=== PATIENT | female | born 1975 | race Caucasian/White ===

== ENCOUNTER 2017-04-07 08:43 | Emergency (ER) | payer SELFPAY | END 2017-04-07 12:48 | disposition home or self-care (01) | LOC: ERS 08:43 | DX: J11.1 Influenza due to unidentified influenza virus with other respiratory manifestations (principal); F41.9 Anxiety disorder, unspecified; F17.210 Nicotine dependence, cigarettes, uncomplicated | CPT/HCPCS: 87081; 87430; 99283 ==

== ENCOUNTER 2017-11-18 10:16 | Outpatient (CLI) | payer BC | END 2017-11-18 10:17 | disposition home or self-care (01) | LOC: BICULT 10:16 | PROVIDERS: ATTEND Family Medicine | DX: N92.1 Excessive and frequent menstruation with irregular cycle (principal) | CPT/HCPCS: 76856 ==

== ENCOUNTER 2018-04-02 08:00 | Emergency (ER) | payer BC ==
[2018-04-02 08:22] LABS: Bilirubin Negative (Negative); Blood, Urine Trace (Negative); Clarity CLOUDY (Clear); Glucose, Urine (Dipstick) Negative (Negative); Leukocyte Large (Negative); Nitrite Negative (Negative); Protein, Urine (Dipstick) Negative (Neg-Trace); Specific Gravity, Urine 1.011 (1.002-1.036); Urobilinogen 0.2 mg/dL (0.2-1.0); pH, Urine 7.5 (5.0-9.0)
[2018-04-02 08:24] LABS: Bacteria/HPF 4+ HPF (None Seen); Hyaline Casts/LPF 0-3 HYALINE CAST LPF (0-3 Hyaline); Pathc Cast-AUWi Flag 0.43 (0-2.49); Pregnancy Test - Urine (BHCG) Negative (Negative); Pregu Control Background? CLEAR/WHITE (CLR/WHITE); Pregu Control Bar Appear? YES (CONTROL BAR); Specific Gravity 1.011 (1.002-1.036); Squamous Epithelial None Seen HPF (0-3)
[2018-04-06 21:01] LABS: Chlamydia by PCR Not Detected (NotDetected); GC by PCR Not Detected (NotDetected)
== END 2018-04-02 08:58 | disposition home or self-care (01) ==
LOC: ERS 08:00
DX: N39.0 Urinary tract infection, site not specified (principal); J30.9 Allergic rhinitis, unspecified; N76.0 Acute vaginitis; B37.3 Candidiasis of vulva and vagina; N89.8 Other specified noninflammatory disorders of vagina; Z71.6 Tobacco abuse counseling
CPT/HCPCS: 81003; 81015; 81025; 87077; 87081; 87086; 87186; 87430; 87480; 87491; 87510; 87591; 87660; 99406

== ENCOUNTER 2018-08-23 07:52 | Outpatient (CLI) | payer OTHER, MEDICAID ==
--- NOTE | 2018-08-23 08:34 | MMO ---
Bilateral MAMMO Bilat Screen [facility]. CLINICAL HISTORY: Patient is 43 years old and is seen for screening. The patient has no family history of breast cancer. The patient has no personal history of cancer. VIEWS: The views performed were: bilateral craniocaudal with tomosynthesis and bilateral mediolateral oblique with tomosynthesis. MAMMOGRAM FINDINGS: There are scattered fibroglandular densities. There are no suspicious masses, suspicious calcifications, or new areas of architectural distortion. IMPRESSION: THERE IS NO MAMMOGRAPHIC EVIDENCE OF MALIGNANCY. A ROUTINE FOLLOW-UP MAMMOGRAM IN 1 YEAR IS RECOMMENDED. THE RESULTS OF THIS EXAM WERE SENT TO THE PATIENT. ACR BI-RADS Category 1 - Negative MAMMOGRAPHY NOTE: 1. A negative mammogram report should not delay a biopsy if a dominant of clinically suspicious mass is present. 2. Approximately 10% to 15% of breast cancers are not detected by mammography. 3. Adenosis and dense breasts may obscure an underlying neoplasm.
--- NOTE | 2018-08-23 09:49 | ULT ---
RIGHT UPPER QUADRANT ULTRASOUND: HISTORY: Elevated LFTs. COMPARISON: 06/20/2016 FINDINGS: The liver, gallbladder, and visualized portions of the pancreas (still not seen due to overlying opal l gas) are normal. The common duct measures 3 mm in diameter. No right hydronephrosis is seen. No free fluid is noted in the Marcelino pouch. There is a questionable right renal mass arising from the right mid kidney, measuring 2.8 x 2.5 x 2.1 cm. IMPRESSION: 1. No evidence of cholelithiasis. 2. Probable right renal mass. Further evaluation with CT scan (with and without intravenous contras t) is recommended. CODE T POS: [facility]
== END 2018-08-23 07:53 | disposition home or self-care (01) ==
LOC: BICULT 07:52
PROVIDERS: ATTEND Family Medicine
DX: Z12.31 Encounter for screening mammogram for malignant neoplasm of breast (principal); R10.9 Unspecified abdominal pain
CPT/HCPCS: 76705; 77063; 77067

== ENCOUNTER 2018-09-01 12:56 | Outpatient (CLI) | payer OTHER ==
--- NOTE | 2018-09-01 14:24 | CT ---
CT ABDOMEN AND PELVIS WITH AND WITHOUT IV CONTRAST: 09/01/18 PROVIDED CLINICAL HISTORY: Possible renal mass on prior ultrasound. FINDINGS: Correlation is made with ultrasound dated 08/23/18. The visualized lung bases are free of significant opacity. There is no evidence for right renal mass as questioned on the prior ultrasound. There is a Subcentim eter hypodensity involving the left kidney which is too small to definitively characterize but demons trates features typical for a cyst. The solid abdominal organs demonstrate an otherwise unremarkable CT appearance. The delayed images demonstrate no evidence for filling defects involving the renal co llecting systems, opacified ureters or urinary bladder. There is no bowel dilatation, inflammatory fat stranding, free fluid or lymph node enlargement appare nt. Nonspecific somewhat prominent and heterogeneous appearance to the uterine cervix. The osseous structures demonstrate no concerning lytic or blastic lesions. IMPRESSION: 1. No evidence for renal mass as questioned on prior ultrasound. 2. Nonspecific prominent and somewhat heterogeneous appearance to the uterine cervix. Consider c orrelation with cervical exam. POS: [facility]
== END 2018-09-01 12:57 | disposition home or self-care (01) ==
LOC: BICCT 12:56
PROVIDERS: ATTEND Family Medicine
DX: N28.89 Other specified disorders of kidney and ureter (principal)
CPT/HCPCS: 74178

== ENCOUNTER 2019-02-02 01:40 | Emergency (ER) | payer OTHER ==
[2019-02-02] MEDS ORDERED: Mag-Al 1200 mg/1200 mg/30 ML UDCUP ONE (02:07)
[2019-02-02] MEDS ORDERED: Lidocaine Viscous Sol 2% 15 ml UD Cup ONE (02:07)
== END 2019-02-02 02:56 | disposition home or self-care (01) ==
LOC: ERS 01:40
DX: K21.0 Gastro-esophageal reflux disease with esophagitis (principal); F32.9 Major depressive disorder, single episode, unspecified; F17.210 Nicotine dependence, cigarettes, uncomplicated; Z79.899 Other long term (current) drug therapy
CPT/HCPCS: 99283

== ENCOUNTER 2019-02-07 02:43 | Emergency (ER) | payer OTHER ==
[2019-02-07 03:11] LABS: #Eosinphils 0.1 thou/uL (0.0-0.7); #Lymphocytes 2.4 thou/uL (1.20-3.40); #Monocytes 0.8 thou/uL (0.11-0.59); #Neutrophils 5.6 thou/uL (1.40-6.50); %Basophils 0.4 % (0.0-1.0); %Eosinophils 1.5 % (0.0-10.0); %Lymphocytes 26.9 % (21.0-51.0); %Monocytes 8.4 % (0.0-10.0); %Neutrophils 62.8 % (42.0-75.0); Hemoglobin 13.3 g/dL (12.0-16.0); Mean Corpuscular HGB CONC 33.7 g/dL (32.0-36.0); Mean Corpuscular Hemoglobin 29.4 pg (27.0-31.0); Mean Corpuscular Volume 87.1 fL (78.0-98.0); Mean Platelet Volume 8.1 fL (7.4-10.4); Platelet Count 275 thou/uL (130-400); RBC Distribution Width 11.9 % (11.5-14.5); Red Blood Cell (RBC) Count 4.53 mill/uL (4.20-5.40); White Blood Cell (WBC) Count 8.9 thou/uL (4.8-10.8)
[2019-02-07 03:32] LABS: ALT (SGPT) 17 U/L (8-55); AST (SGOT) 15 U/L (5-34); Albumin 3.6 g/dL (3.5-5.0); Alkaline Phosphatase 319 U/L (40-110); Anion Gap 12 mmol/L (10-20); BUN (Urea Nitrogen) 13 mg/dL (7.0-18.7); Bilirubin, Total 0.2 mg/dL (0.2-1.2); Calc. Creatinine Clearance 0 mL/min (70-130); Calcium 9.2 mg/dL (7.8-10.44); Carbon Dioxide 23 mmol/L (22-29); Chloride 105 mmol/L (98-107); Estimated GFR-MDRD 73; Globulin 3.7 g/dL (2.4-3.5); Glucose 102 mg/dL (70-105); Lipase 41 U/L (8-78); Potassium 3.9 mmol/L (3.5-5.1); Protein, Total 7.3 g/dL (6.0-8.3); Sodium 136 mmol/L (136-145)
[2019-02-07] MEDS ORDERED: Lidocaine Viscous Sol 2% 15 ml UD Cup ONE (03:47)
[2019-02-07] MEDS ORDERED: Mag-Al 1200 mg/1200 mg/30 ML UDCUP ONE (03:47)
[2019-02-07 05:12] LABS: Bacteria/HPF None Seen HPF (None Seen); Bilirubin Negative (Negative); Blood, Urine Negative (Negative); Clarity Clear (Clear); Glucose, Urine (Dipstick) Normal (Negative); Leukocyte 75 Leu/uL (Negative); Nitrite Negative (Negative); Pregnancy Test - Urine (BHCG) Negative (Negative); Pregu Control Background? CLEAR/WHITE (CLR/WHITE); Pregu Control Bar Appear? YES (CONTROL BAR); Protein, Urine (Dipstick) Negative (Neg-Trace); RBC/HPF 0-3 HPF (0-3); Specific Gravity 1.043 (1.002-1.036); Squamous Epithelial 0-3 HPF (0-3); Urobilinogen Normal mg/dL (Less than 2)
[2019-02-07 05:48] LABS: Troponin I Less than 0.010 ng/mL (< 0.028)
--- NOTE | 2019-02-07 08:32 | CT ---
PRELIMINARY REPORT/[facility]/EMERGENCY AFTER HOURS PROCEDURE: PROCEDURE INFORMATION: Exam: CT Angiography Chest With Contrast Exam date and time: 02/07/2019 3:56 AM Clinical history: 43 years old, female; Sharp intermittent right-sided chest pain and right-sided cade k pain, woke from sleep around 1:30 am. Pain worsens with breathing. PT reports HX of similar SX, wor ked up for by pcp Dr. Kwan Barton, had negative abdominal US and CT. HX - acid reflux, takes medications; No abdominal surgery. TECHNIQUE: Imaging protocol: Computed tomographic angiography of the chest with intravenous contrast. 3D rendering: MIP reconstructed images were created and reviewed. COMPARISON: No relevant prior studies available. FINDINGS: Pulmonary arteries: No evidence of pulmonary embolism. Aorta: Normal caliber thoracic aorta without dissection or aneurysm. Lungs: No alveolar infiltrate. Pleural space: No pleural fluid collection. No pneumothorax. Heart: No RV dysfunction. No pericardial effusion. Lymph nodes: Unremarkable. No enlarged lymph nodes. Bones/joints: Unremarkable. No acute fracture. Soft tissues: Unremarkable. IMPRESSION: 1. No evidence of pulmonary embolism. 2. No alveolar infiltrate. 3. Normal caliber thoracic aorta without dissection or aneurysm. Thank you for allowing us to participate in the care of your patient. Dictated and Authenticated by: Matthew Haines MD 02/07/2019 4:35 AM Central Time ([place] & [place]) FINAL REPORT EMERGENCY AFTER HOURS CTA CHEST WITH CONTRAST: FINDINGS/IMPRESSION: I agree with the findings and impression given in the preliminary report per [facility] physician. No evide nce of pulmonary thromboembolism.
== END 2019-02-07 06:12 | disposition home or self-care (01) ==
LOC: ERS 02:43
DX: R07.89 Other chest pain (principal); N39.0 Urinary tract infection, site not specified; K21.9 Gastro-esophageal reflux disease without esophagitis; F41.9 Anxiety disorder, unspecified; F32.9 Major depressive disorder, single episode, unspecified; Z87.891 Personal history of nicotine dependence; Z79.899 Other long term (current) drug therapy
CPT/HCPCS: 36415; 71275; 80053; 81003; 81015; 81025; 83690; 84484; 85025; 85379; 93005

== ENCOUNTER 2019-02-14 08:35 | Outpatient (CLI) | payer OTHER ==
--- NOTE | 2019-02-14 11:52 | NM ---
EXAM: NM Hida Scan W Drug PROVIDED CLINICAL HISTORY: Epigastric abdominal pain. Radiopharmaceutical: 5.3 mCi technetium 99m mebrofenin, IV. COMPARISON: None FINDINGS: There is normal uptake and excretion of radiotracer by the liver. Gallbladder activity is faintly vis ualized by 5 minutes with increasing activity in the gallbladder imaging up to 60 minutes. Bowel activity is visualized by 23 minutes. After 60 minutes of imaging, 8 ounces of ensure was administere d by mouth, and a gallbladder ejection fraction of 55% was obtained. A normal gallbladder ejection fraction is greater than 33%. IMPRESSION: 1. No evidence of a cystic or common duct obstruction. 2. Normal gallbladder ejection fraction.
== END 2019-02-14 08:36 | disposition home or self-care (01) ==
LOC: NM 08:35
PROVIDERS: ATTEND Family Medicine
DX: R10.13 Epigastric pain (principal)
CPT/HCPCS: 78227; A9537

== ENCOUNTER 2019-09-20 07:46 | Outpatient (CLI) | payer OTHER ==
--- NOTE | 2019-09-20 08:33 | ULT ---
Sonogram right upper quadrant HISTORY: Right upper quadrant pain. FINDINGS: Gallbladder has a normal appearance Without stone evident. Common duct is 0.3 cm. Liver unremarkable without focal mass or intrahepatic biliary dilatation. No free fluid. IMPRESSION : Normal exam.
== END 2019-09-20 07:47 | disposition home or self-care (01) ==
LOC: BICULT 07:46
PROVIDERS: ATTEND Internal Medicine Gastroenterology
DX: R10.11 Right upper quadrant pain (principal); K21.9 Gastro-esophageal reflux disease without esophagitis
CPT/HCPCS: 76705

== ENCOUNTER 2019-09-20 07:54 | Outpatient (CLI) | payer OTHER ==
--- NOTE | 2019-09-20 08:15 | RAD ---
Chest 2 views HISTORY: Elevated alkaline phosphatase level. COMPARISON: 06/25/2013. FINDINGS: Cardiac silhouette and pulmonary vasculature are unremarkable. Mediastinum is midline. No lobar consolidation, pneumothorax, or pleural fluid. Osseous structures are unremarkable. IMPRESSION : Normal exam.
== END 2019-09-20 07:55 | disposition home or self-care (01) ==
LOC: BICRAD 07:54
PROVIDERS: ATTEND Family Medicine
DX: R74.8 Abnormal levels of other serum enzymes (principal)
CPT/HCPCS: 71046; 76705

== ENCOUNTER 2019-09-29 06:31 | Outpatient (CLI) | payer OTHER ==
[2019-09-29 13:51] LABS: BHCG - Serum Negative (NEGATIVE); Pregs Control Background? CLEAR/WHITE (CLR/WHITE); Pregs Control Bar Appear? YES (CONTROL BAR)
== END 2019-09-29 06:32 | disposition home or self-care (01) ==
LOC: LABBT 06:31
PROVIDERS: ATTEND Family Medicine
DX: Z01.812 Encounter for preprocedural laboratory examination (principal); Z11.59 Encounter for screening for other viral diseases; N81.4 Uterovaginal prolapse, unspecified; N94.10 Unspecified dyspareunia
CPT/HCPCS: 84703

== ENCOUNTER 2019-10-03 05:39 | Day surgery (SDC) | payer OTHER ==
[2019-09-28 10:22] VITALS: BMI 35.4
[2019-09-29 14:05] LABS: Hemoglobin 13.2 g/dL (12.0-16.0); Mean Corpuscular HGB CONC 33.4 g/dL (32.0-36.0); Mean Corpuscular Hemoglobin 28.9 pg (27.0-31.0); Mean Corpuscular Volume 86.7 fL (78.0-98.0); Mean Platelet Volume 9.1 fL (7.4-10.4); Platelet Count 270 thou/uL (130-400); RBC Distribution Width 12.7 % (11.5-14.5); Red Blood Cell (RBC) Count 4.57 mill/uL (4.20-5.40); White Blood Cell (WBC) Count 7.5 thou/uL (4.8-10.8)
[2019-09-30 11:32] LABS: SARS-CoV-2 MS2 Positive; SARS-CoV-2 N Gene Negative; SARS-CoV-2 S Gene Negative; SARS-CoV-2 orf1ab Negative
--- NOTE | 2019-10-02 11:23 | HP ---
REASON FOR ADMISSION: Symptomatic uterine prolapse with stress incontinence and dyspareunia. SCHEDULED PROCEDURE: Total laparoscopic hysterectomy with bilateral salpingectomy, midurethral sling with Advantage Fit and cystoscopy, possible uterosacral ligament vaginal vault suspension. HISTORY OF PRESENT ILLNESS: Ms. Holman is a 44-year-old, 2, para 2, status post x2, negative Pap smear. She has a history of dyspareunia and dysmenorrhea, stress incontinence, and desires definitive surgical management. SOCCER PLAYER HISTORY: As noted. PAST MEDICAL HISTORY: Significant for anxiety and gastroesophageal reflux. PAST SURGICAL HISTORY: Tubal ligation and LEEP. SOCIAL HISTORY: The patient is an everyday smoker. Denies alcohol or IV drug abuse. MEDICATIONS: Include Nexium, TriNessa, and Wellbutrin. ALLERGIES: SULFA. FAMILY HISTORY: Noncontributory. PHYSICAL EXAMINATION: GENERAL: White female, 5 feet and 3, 200 pounds, BMI 35, blood pressure 112/74, pulse 91, and respirations 18. HEENT: Within normal limits. LUNGS: Clear to auscultation bilaterally. HEART: Regular rhythm. BREASTS: No masses bilaterally. ABDOMEN: Soft and nontender. No rebound or guarding. : Vulva without lesions. Vagina without discharge. Cervix, introitus -3 with a prominent nabothian cyst. Uterus is tender, smooth, and normal size, adnexa without masses. The patient has a hypermobile urethra with a leak with cough form Valsalva. EXTREMITIES: Without clubbing, cyanosis, or edema. LABORATORY DATA: The patient has a negative test on the 18, hematocrit of 39.6% with a white count of 7.5. Negative COVID test. Blood type A positive, antibody negative. IMPRESSION: Symptomatic uterine prolapse with dyspareunia, dysmenorrhea, and hypermobile urethra and stress incontinence. PLAN: Total laparoscopic hysterectomy, bilateral salpingectomy, possible vaginal vault suspension with uterosacral ligament, midurethral sling with [employer] Advantage Fit and cystoscopy. The patient understands risks and benefits of procedure. We will administer appropriate antibiotic and DVT prophylaxis. Job ID: [id number]
[2019-10-03] MEDS ORDERED: Famotidine/PF 20 mg/2ml Vial ONE (06:03)
[2019-10-03] MEDS ORDERED: CeleCOXIB 100 MG CAP ONE (06:03)
[2019-10-03] MEDS ORDERED: Gabapentin 300 MG CAP ONE (06:03)
[2019-10-03] MEDS ORDERED: Lidocaine 1% w/Epinephrine 1:100K 20 ML VIAL ONE (06:41)
[2019-10-03] MEDS ORDERED: Bupivacaine PF 0.5% 30 ML VIAL ONE (06:41)
[2019-10-03] MEDS ORDERED: Midazolam HCl 2 mg/2 ml Vial ONE (07:20)
[2019-10-03] MEDS ORDERED: Fentanyl 100 MCG/2 ML VIAL ONE ×3 (07:22→10:19)
[2019-10-03] MEDS ORDERED: Morphine 4 MG/ML VIAL SLOW IVP PRN (09:14)
[2019-10-03] MEDS ORDERED: HYDROcodone/Acetaminophen 10/325 mg Tablet PO PRN ×2 (09:14)
[2019-10-03] MEDS ORDERED: Promethazine HCl 25 MG/ML VIAL IM PRN ×2 (09:14→09:28)
[2019-10-03] MEDS ORDERED: Simethicone Chewable 80 MG TAB PO PRN (09:14)
[2019-10-03] MEDS ORDERED: Ondansetron PF 4 MG/2 ML Vial IVP PRN (09:14)
[2019-10-03] MEDS ORDERED: Bisacodyl 10 MG SUPP PR PRN (09:14)
[2019-10-03] MEDS ORDERED: diphenhydrAMINE 25 MG CAP PO PRN (09:14)
[2019-10-03] MEDS ORDERED: Ondansetron HCl/PF 4 MG/2 ML Vial IVP PRN (09:28)
[2019-10-03] MEDS ORDERED: Promethazine HCl 25 MG/ML VIAL SLOW IVP PRN (09:28)
--- NOTE | 2019-10-03 10:51 | OP ---
DATE OF PROCEDURE: 10/03/2019 PREOPERATIVE DIAGNOSES: Stress urinary incontinence, mild uterine prolapse with dyspareunia and dysmenorrhea. POSTOPERATIVE DIAGNOSES: Stress urinary incontinence, mild uterine prolapse with dyspareunia and dysmenorrhea. PROCEDURES PERFORMED: Total laparoscopic hysterectomy, bilateral salpingectomy, mid urethral sling with Advantage Fit and cystourethroscopy. CARD CLOTHIER: Arlene Mayers PA-C ANESTHESIA: Sergio Kang CRNA, general endotracheal. MEDICATIONS: 2 g Ancef pre-incision. DVT PROPHYLAXIS: SCDs. DRAINS: Bradley to gravity. ESTIMATED BLOOD LOSS: 75 mL. COMPLICATIONS: None. OPERATIVE FINDINGS: 1. Normal-appearing uterus, tubes, and ovaries bilaterally. 2. Hemostasis, clear urine at the end of the procedure. 3. Normal-appearing bladder, status post mid urethral sling placement. 4. Correct counts at the end of the procedure. DISPOSITION: Recovery room in good condition. DESCRIPTION OF PROCEDURE: After obtaining appropriate informed consent, the patient was taken to the operating room, where general endotracheal anesthesia was achieved without difficulty. She was prepped and draped in dorsal lithotomy in Roberto Carlos stirrups. Sided speculum placed in vagina, cervix identified, grasped with single-toothed tenaculum at 12 o'clock. Uterus sounded to 8 cm. BEE manipulator with a 4 cm vaginal radio interference trouble shooter and an 8 cm obturator was placed without difficulty. Speculum and tenaculum were removed. Bradley catheter placed, placed on a 60 mL syringe after draining 200 mL of clear urine. Legs were rotated down and capsule machine operator changed his gloves and turned attention to abdominal portion of the procedure. A 5 mL of Marcaine was injected at the base of umbilicus and a 12 mm skin incision made. Veress needle placed in the abdominal cavity. Insufflation was carried out with carbon dioxide for a maximum pressure of 15, volume approximately 3-1/2 L. A 12 mm non-cutting balloon Usha trocar was placed without difficulty. Right and left lateral da Davonte ports were placed under direct visualization as well as an 11 mm research assistant port in the right upper quadrant. The patient was placed in steep Trendelenburg and the da Davonte robot docked with monopolar scissors in the right hand and bipolar fenestrated forceps in the left. Uterus and adnexa were mobilized. The fallopian tubes were excised on the patient's left, coagulating across the medial salpinx and sent for pathologic analysis. Utero-ovarian ligaments around the broad ligament were coagulated and transected and this was taken down to the level of the internal cervical os on the left. The vesicouterine peritoneal fold was incised sharply, dissecting the bladder off the lower uterine segment, cervix and upper vagina. Skeletonization of the uterine vessels on the left was carried out. These were coagulated and transected. Attention was turned to the patient's right where identical procedure was carried out removing the fallopian tube, coagulating and transecting the broad round and the utero-ovarian, caring this down to the level of internal cervical os, skeletonized the uterine vessels, incising the vesicouterine peritoneum and dissecting the bladder off the lower uterine segment of vagina. Once the uterine vessels had been coagulated and transected on each side, and after having identified the ureter well lateral on each side, the vagina was entered at 12 o'clock. Using the monopolar scissors, this was extended from 12 to 3 and from 12 to 9, and from 3-6 and 9-6 amputating the specimen which was pulled in the vagina to maintain pneumoperitoneum. Suction irrigation was carried out. Good hemostasis was achieved around the vaginal cuff. The cuff was closed using a running continuous 2-0 PDS Stratafix suture running from the patient's right to left and then back to the right in my usual two layer closure technique. The bladder was backfilled to assure it was well away from the apex of the vagina and it was identified and noted to be as such. Suction irrigation was carried out afterwards. Good hemostasis was noted throughout all pedicles. Tisseel was placed across all pedicles. The abdomen was desufflated with carbon dioxide after removing the da Davonte instruments, undocking the DA Davonte, flattening the patient. All trocars were removed. The fascia at the umbilicus was reapproximated using 0 Vicryl on a UR5 needle. Skin reapproximated x4 using 4-0 Monocryl and Dermabond. Attention was turned to the vagina. The legs in Roberto Carlos stirrups were rotated down to the angle of less than 15 degrees. Palpating the symphysis pubis in the midline, leone were made approximately 2 cm lateral to the midline on each side at the level of the symphysis pubis. 60 mL of normal saline was injected for hydrodissection into the space of Retzius. Bradley catheter was still resident in the bladder and was well drained and a 2 cm segment of the mid urethra was isolated. This was infiltrated underneath with Marcaine and lidocaine with epinephrine mixture. An approximately 2 cm skin incision made using a 15 blade. Blunt sharp dissection was carried out lateral at the level of mid urethra to the pubic ramus on each side using Metzenbaum scissors. After this was done, the Bradley catheter was removed. The catheter guide placed in and it was taped to the patient's right leg deviating the neck of the bladder to the left. The Advantage Fit trocar was passed on the right passing upward from the level of the pubic ramus behind the pubis and coming out just above the symphysis pubis at the previously made carlene. This was hemostatic and the identical procedure was carried out on the patient's left after deviating the bladder neck to the patient's right. Once this was performed, the Bradley catheter was removed. was carried out. Good ureteral efflux of urine was noted from bilateral ureters. The trigone was noted to be normal. The dome of the bladder was noted to be normal. No evidence of bladder injury from the Advantage Fit trocars was noted. The bladder was drained after removing cystoscope. Inspection of the urethra on the way out with the cystoscope revealed no evidence of injury of the urethra as well. A 12 dilator was placed between the mid urethra and Advantage Fit. The Advantage Fit was pulled snugly up against the dilator. The was cut off and removed and the plastic sleeves on the Advantage Fit were removed. The excess mid urethral tape was cut at the level of the symphysis pubis trocar exit points and the tape was noted to lay flatly in a non twisted manner and non tension manner against the mid urethra. Vaginal mucosa was closed using a running locking 2-0 Vicryl suture. The cuff was inspected and noted to be dry and a moistened Kerlix sponge was placed in the vagina for a vaginal pack. Dermabond placed at the two trocar points and the case was terminated. The patient was awakened, extubated, taken to recovery room in good condition. Job ID: [id number]
[2019-10-03] MEDS ORDERED: Lidocaine 1% PF 5 ML VIAL ONE (11:20)
[2019-10-03] MEDS ORDERED: Dexamethasone 20 MG/5 ML VIAL ONE (11:20)
[2019-10-03] MEDS ORDERED: PROPOFOL 200 MG/20 ML VIAL ONE (11:20)
[2019-10-03] MEDS ORDERED: Ketorolac Tromethamine 30 MG/ML VIAL ONE (11:20)
[2019-10-03] MEDS ORDERED: Ondansetron PF 4 MG/2 ML Vial ONE (11:20)
[2019-10-03] MEDS ORDERED: Rocuronium Bromide 10 MG/ML (10ML VIAL) ONE (11:20)
[2019-10-03] MEDS ORDERED: PHENYLEPHRINE-NS 100 MCG/ML 10 ML SYRINGE ONE (11:20)
[2019-10-03] MEDS ORDERED: Ketorolac Tromethamine 30 MG/ML VIAL IVP SCH (12:00)
[2019-10-03] MEDS: Ketorolac Tromethamine 30 MG/ML VIAL IVP SCH ×2 (14:16→21:56)
[2019-10-04] MEDS: Ketorolac Tromethamine 30 MG/ML VIAL IVP SCH ×2 (03:34→07:46)
[2019-10-04 05:52] LABS: Hemoglobin 10.9 g/dL (12.0-16.0); Mean Corpuscular HGB CONC 33.2 g/dL (32.0-36.0); Mean Corpuscular Hemoglobin 28.6 pg (27.0-31.0); Mean Corpuscular Volume 86.3 fL (78.0-98.0); Mean Platelet Volume 8.3 fL (7.4-10.4); Platelet Count 219 thou/uL (130-400); RBC Distribution Width 12.8 % (11.5-14.5); Red Blood Cell (RBC) Count 3.83 mill/uL (4.20-5.40); White Blood Cell (WBC) Count 11.3 thou/uL (4.8-10.8)
[2019-10-04] MEDS ORDERED: Ibuprofen 800 MG TAB PO SCH (06:00)
[2019-10-04 07:41] VITALS: BP 110/57; TEMP 98.4
[2019-10-04] MEDS: Bupropion 150 MG XL TAB PO SCH ×2 (07:50→11:13)
--- NOTE | 2019-10-04 08:39 | PRG ---
DATE OF SERVICE: 10/04/2019 SUBJECTIVE: The patient is postoperative day #1, status post TLH, bilateral salpingectomy, mid-urethral sling with Advantage Fit and cysto. She states that she has mild soreness, but otherwise no complaints. Hematocrit went from 39.6 to 33, platelet counts within normal limits. OBJECTIVE: VITAL SIGNS: Temperature 98.4, T-max 98.8, pulse 74, respirations 20, and blood pressure 110/57. HEENT: Within normal limits. LUNGS: Clear to auscultation bilaterally. HEART: Regular rate and rhythm. ABDOMEN: Soft and nontender. Incisions are intact and dry. Bowel sounds positive in all 4 quadrants. Perineum dry. EXTREMITIES: Without clubbing, cyanosis, or edema. The patient's Bradley was discontinued in the afternoon. The patient's void volumes have not been measured since. Postvoid residuals with first void were 480, measured by ultrasound then 400. Early this morning, she had a postvoid residual of 100 at 0425 hours and another one of 100 at 0530 hours. She denies distention or dysuria. IMPRESSION: Status post total laparoscopic hysterectomy and mid-urethral sling, mildly elevated PVRs improving. PLAN: Continue bladder training and checking PVRs this morning. Anticipate discharge home this afternoon with PVRs persisting in the approximately 100 mL per void range. Job ID: [id number]
== END 2019-10-04 12:35 | disposition home or self-care (01) ==
LOC: SDC 05:39 → 3SW 09:13 → SDC 10-04 12:35
PROVIDERS: ATTEND Obstetrics & Gynecology
PROC: 0UT74ZZ Resection of Bilateral Fallopian Tubes, Percutaneous Endoscopic Approach (ICD-10-PCS; principal; 2019-10-04)
PROC: 0UT94ZZ Resection of Uterus, Percutaneous Endoscopic Approach (ICD-10-PCS; principal; 2019-10-04)
PROC: 0TSD0ZZ Reposition Urethra, Open Approach (ICD-10-PCS; principal; 2019-10-04)
DX: N81.4 Uterovaginal prolapse, unspecified (principal); N39.3 Stress incontinence (female) (male); N72 Inflammatory disease of cervix uteri; N80.0 Endometriosis of uterus; N94.10 Unspecified dyspareunia; N94.6 Dysmenorrhea, unspecified; F41.9 Anxiety disorder, unspecified; K21.9 Gastro-esophageal reflux disease without esophagitis; F17.200 Nicotine dependence, unspecified, uncomplicated; Z79.899 Other long term (current) drug therapy; Z88.2 Allergy status to sulfonamides
CPT/HCPCS: 36415; 85027; 86850; 86900; 86901; 87635; 88307; C1781; J0690; J1100; J1885; J2001; J2250; J2405; J2704; J3010; S0020; S0028; U0003

== ENCOUNTER 2019-12-13 16:01 | Outpatient (CLI) | payer OTHER | END 2019-12-13 16:02 | disposition home or self-care (01) | LOC: CTENTCT 16:01 | PROVIDERS: ATTEND Specialist | DX: R51 Headache (principal) | CPT/HCPCS: 70486 ==

== ENCOUNTER 2020-06-06 07:54 | Outpatient (CLI) | payer OTHER ==
--- NOTE | 2020-06-06 09:16 | CT ---
CT Abdomen Pelvis W Con: 06/06/2020 8:10 AM CLINICAL INFORMATION: Abdominal pain for 4 days. Possible hernia. COMPARISON: 09/01/2018 TECHNIQUE: Multiple contiguous axial images were obtained and a CT of the abdomen and pelvis with IV contrast. Oral contrast was administered. Coronal and sagittal reformats were performed. FINDINGS: Lower Chest: within normal limits. Abdomen: Liver: within normal limits. Bile Ducts: Normal caliber. Gallbladder: No calcified gallstones. Normal caliber wall. Pancreas: within normal limits. Spleen: within normal limits. Adrenals: within normal limits. Kidneys: 1.1 cm left renal cyst. Pelvis: Reproductive Organs: Status post hysterectomy. There are cystic lesions measuring up to 2.7 cm in siz e along both pelvic sidewalls which likely represent ovarian cysts/follicles. Ureters: within normal limits. Bladder: within normal limits. Peritoneum: No ascites or free air, no fluid collection. Bowel: Normal caliber. Normal appendix. Mesentery and Retroperitoneum: No enlarged mesenteric or retroperitoneal lymph nodes. Vessels: Normal. Abdominal Wall: within normal limits. Bones: Within normal limits IMPRESSION: 1. No evidence of acute intraabdominal or pelvic abnormality. 2. Interval hysterectomy with ovarian cysts/follicles in the remaining ovaries. 3. Left renal cyst
[2020-06-06] MEDS ORDERED: Iopamidol 370 76% 100 ML VIAL ONE (13:48)
== END 2020-06-06 07:55 | disposition home or self-care (01) ==
LOC: CT 07:54
PROVIDERS: ATTEND Physician Assistant Medical
DX: K21.9 Gastro-esophageal reflux disease without esophagitis (principal); R10.33 Periumbilical pain; N28.1 Cyst of kidney, acquired; Z90.710 Acquired absence of both cervix and uterus
CPT/HCPCS: 74177; Q9967

== ENCOUNTER 2020-07-15 07:52 | Day surgery (SDC) | payer OTHER ==
[2020-07-08 15:48] VITALS: BMI 37.3
[2020-07-15] MEDS ORDERED: Sodium Bicarbonate 2.5 MEQ/5 ML VIAL ONE (08:10)
[2020-07-15] MEDS ORDERED: Lidocaine 1% PF 5 ML VIAL ONE (08:10)
[2020-07-15] MEDS ORDERED: Fentanyl 100 MCG/2 ML VIAL ONE (08:10)
[2020-07-15 08:17] LABS: #Basophils 0.1 thou/uL (0.0-0.2); #Eosinphils 0.3 thou/uL (0.0-0.7); #Lymphocytes 2.3 thou/uL (1.20-3.40); #Monocytes 1.1 thou/uL (0.11-0.59); #Neutrophils 5.1 thou/uL (1.40-6.50); %Basophils 0.6 % (0.0-1.0); %Eosinophils 3.5 % (0.0-10.0); %Lymphocytes 25.6 % (21.0-51.0); %Monocytes 12.3 % (0.0-10.0); Hemoglobin 13.4 g/dL (12.0-16.0); Mean Corpuscular HGB CONC 34.4 g/dL (32.0-36.0); Mean Corpuscular Hemoglobin 30.3 pg (27.0-31.0); Mean Corpuscular Volume 88.1 fL (78.0-98.0); Mean Platelet Volume 8.5 fL (7.4-10.4); Platelet Count 260 thou/uL (130-400); RBC Distribution Width 12.3 % (11.5-14.5); Red Blood Cell (RBC) Count 4.41 mill/uL (4.20-5.40); White Blood Cell (WBC) Count 8.9 thou/uL (4.8-10.8)
[2020-07-15 08:27] LABS: INR-International Normal Ratio 0.9; PTT 29.2 sec (22.9-36.1); Prothrombin Time 12.2 sec (12.0-14.7)
[2020-07-15] MEDS ORDERED: Midazolam HCl 2 mg/2 ml Vial ONE (08:49)
[2020-07-15 10:25] VITALS: BP 111/75; TEMP 98.2
== END 2020-07-15 11:07 | disposition home or self-care (01) ==
LOC: ULT 07:52
PROVIDERS: ATTEND Physician Assistant Medical
PROC: 0FB03ZX Excision of Liver, Percutaneous Approach, Diagnostic (ICD-10-PCS; principal; 2020-07-15)
PROC: BF45ZZZ Ultrasonography of Liver (ICD-10-PCS; principal; 2020-07-15)
DX: K76.0 Fatty (change of) liver, not elsewhere classified (principal); K21.9 Gastro-esophageal reflux disease without esophagitis; F32.9 Major depressive disorder, single episode, unspecified; I71.4 Abdominal aortic aneurysm, without rupture; Z79.899 Other long term (current) drug therapy; Z87.891 Personal history of nicotine dependence; Z88.2 Allergy status to sulfonamides
CPT/HCPCS: 47000; 76942; 85025; 85610; 85730; 88307; 88313; J2250; J3010

== ENCOUNTER 2021-03-17 14:22 | Outpatient (CLI) | payer OTHER ==
[2021-03-18 11:04] LABS: SARS-CoV-2 PCR by NAA Not Detected (NotDetected)
== END 2021-03-17 14:23 | disposition home or self-care (01) ==
LOC: LABBT 14:22
PROVIDERS: ATTEND Specialist
DX: Z01.812 Encounter for preprocedural laboratory examination (principal); J34.2 Deviated nasal septum; J34.3 Hypertrophy of nasal turbinates; J35.1 Hypertrophy of tonsils; R09.82 Postnasal drip; R05.9 Cough, unspecified; Z20.822 Contact with and (suspected) exposure to COVID-19
CPT/HCPCS: 85014; U0003; U0005

== ENCOUNTER 2021-03-20 09:16 | Day surgery (SDC) | payer OTHER ==
[2021-03-18 13:56] VITALS: BMI 34.5
[2021-03-20] MEDS ORDERED: Oxymetazoline HCl 0.05% (30 ML BOT) ONE (10:26)
[2021-03-20] MEDS ORDERED: Midazolam HCl 2 mg/2 ml Vial ONE (11:07)
[2021-03-20] MEDS ORDERED: HYDROmorphone 0.5 MG/0.5 ML SYRINGE ONE (11:07)
[2021-03-20] MEDS ORDERED: Fentanyl 100 MCG/2 ML VIAL ONE ×3 (11:07→13:19)
[2021-03-20] MEDS ORDERED: Lidocaine 1% w/Epinephrine 1:100K 20 ML VIAL ONE (11:08)
[2021-03-20] MEDS ORDERED: Ferric Subsulfate (ASTRINGYN) 8 GM VIAL ONE (11:08)
[2021-03-20] MEDS ORDERED: AFRIN NASAL MIST 15 ML BOT ONE (11:09)
[2021-03-20] MEDS ORDERED: Bacitracin Zinc Ointment 30 gm TUBE ONE (11:09)
[2021-03-20] MEDS ORDERED: Lidocaine 1% PF 5 ML VIAL ONE (11:22)
[2021-03-20] MEDS ORDERED: Dexamethasone 20 MG/5 ML VIAL ONE (11:22)
[2021-03-20] MEDS ORDERED: PROPOFOL 200 MG/20 ML VIAL ONE (11:22)
[2021-03-20] MEDS ORDERED: Ondansetron PF 4 MG/2 ML Vial ONE (11:22)
[2021-03-20] MEDS ORDERED: HYDROcodone/Acetaminophen 5/325 mg Tablet ONE (13:55)
== END 2021-03-20 16:00 | disposition home or self-care (01) ==
LOC: SDC 09:16
PROVIDERS: ATTEND Specialist
PROC: 09SM4ZZ Reposition Nasal Septum, Percutaneous Endoscopic Approach (ICD-10-PCS; principal; 2021-03-20)
PROC: 09TL8ZZ Resection of Nasal Turbinate, Via Natural or Artificial Opening Endoscopic (ICD-10-PCS; principal; 2021-03-20)
PROC: 0CTPXZZ Resection of Tonsils, External Approach (ICD-10-PCS; principal; 2021-03-20)
DX: J35.01 Chronic tonsillitis (principal); J34.2 Deviated nasal septum; J34.3 Hypertrophy of nasal turbinates; Z79.899 Other long term (current) drug therapy; Z88.2 Allergy status to sulfonamides
CPT/HCPCS: 88304; J1100; J1170; J2250; J2405; J2704; J3010

== ENCOUNTER 2021-04-04 10:34 | Emergency (ER) | payer OTHER | END 2021-04-04 12:15 | disposition home or self-care (01) | LOC: ERS 10:34 | DX: J01.90 Acute sinusitis, unspecified (principal); B96.89 Other specified bacterial agents as the cause of diseases classified elsewhere; K21.9 Gastro-esophageal reflux disease without esophagitis; F17.210 Nicotine dependence, cigarettes, uncomplicated; Z79.899 Other long term (current) drug therapy | CPT/HCPCS: 99283 ==

== ENCOUNTER 2021-04-26 16:53 | Emergency (ER) | payer BC ==
[2021-04-26 18:08] LABS: Bilirubin Negative (Negative); Blood, Urine Negative (Negative); Clarity Clear (Clear); Glucose, Urine (Dipstick) Normal (Negative); Ketone, Urine Negative (Negative); Leukocyte Negative Leu/uL (Negative); Nitrite Negative (Negative); Protein, Urine (Dipstick) Negative (Neg-Trace); Specific Gravity, Urine 1.012 (1.002-1.036); Urobilinogen Normal mg/dL (Less than 2); pH, Urine 6.5 (5.0-9.0)
[2021-04-26] MEDS ORDERED: Acetaminophen 500 MG TAB ONE (18:27)
[2021-04-26 18:57] LABS: #Eosinphils 0.3 thou/uL (0.0-0.7); #Lymphocytes 0.9 thou/uL (1.20-3.40); #Monocytes 0.9 thou/uL (0.11-0.59); #Neutrophils 4.5 thou/uL (1.40-6.50); %Basophils 0.3 % (0.0-1.0); %Eosinophils 4.5 % (0.0-10.0); %Lymphocytes 13.2 % (21.0-51.0); %Monocytes 13.2 % (0.0-10.0); %Neutrophils 68.7 % (42.0-75.0); Hemoglobin 13.6 g/dL (12.0-16.0); Mean Corpuscular HGB CONC 34.2 g/dL (32.0-36.0); Mean Corpuscular Hemoglobin 30.2 pg (27.0-31.0); Mean Corpuscular Volume 88.4 fL (78.0-98.0); Mean Platelet Volume 7.4 fL (7.4-10.4); Platelet Count 224 thou/uL (130-400); RBC Distribution Width 12.5 % (11.5-14.5); White Blood Cell (WBC) Count 6.6 thou/uL (4.8-10.8)
[2021-04-26 19:24] LABS: ALT (SGPT) 17 U/L (8-55); AST (SGOT) 22 U/L (5-34); Albumin 3.5 g/dL (3.5-5.0); Alkaline Phosphatase 354 U/L (40-110); Anion Gap 12 mmol/L (10-20); BUN (Urea Nitrogen) 11 mg/dL (7.0-18.7); Bilirubin, Total 0.3 mg/dL (0.2-1.2); Calc. Creatinine Clearance 0 mL/min (70-130); Calcium 9.1 mg/dL (7.8-10.44); Carbon Dioxide 23 mmol/L (22-29); Chloride 103 mmol/L (98-107); Glucose 105 mg/dL (70-105); Potassium 4.2 mmol/L (3.5-5.1); Protein, Total 7.5 g/dL (6.0-8.3); Sodium 134 mmol/L (136-145)
[2021-04-27 15:36] LABS: SARS-CoV-2 PCR by NAA DETECTED (NotDetected)
== END 2021-04-26 20:00 | disposition home or self-care (01) ==
LOC: ERS 16:53
DX: U07.1 COVID-19 (principal); R53.81 Other malaise; K21.9 Gastro-esophageal reflux disease without esophagitis; F17.210 Nicotine dependence, cigarettes, uncomplicated
CPT/HCPCS: 36415; 71045; 80053; 81003; 85025; 87077; 87086; 87186; U0003; U0005

== ENCOUNTER 2023-12-20 07:24 | Outpatient (CLI) | payer BC | END 2023-12-20 07:25 | disposition home or self-care (01) | LOC: ULT 07:24 | PROVIDERS: ATTEND Family Medicine | DX: R74.8 Abnormal levels of other serum enzymes (principal); R16.1 Splenomegaly, not elsewhere classified; K76.0 Fatty (change of) liver, not elsewhere classified; N28.1 Cyst of kidney, acquired | CPT/HCPCS: 76700 ==

== ENCOUNTER 2024-12-19 15:47 | Outpatient (CLI) | payer OTHER | END 2024-12-19 15:48 | disposition home or self-care (01) | LOC: BICRAD 15:47 | PROVIDERS: ATTEND Family Medicine | DX: M25.561 Pain in right knee (principal); M25.562 Pain in left knee ==

== ENCOUNTER 2025-02-19 08:54 | Outpatient (CLI) | payer OTHER | END 2025-02-19 08:55 | disposition home or self-care (01) | LOC: SCSRAD 08:54 | PROVIDERS: ATTEND Nurse Practitioner Family | DX: M77.9 Enthesopathy, unspecified (principal) ==